=== PATIENT | female | born 1985 | race Caucasian/White ===

== ENCOUNTER 2016-07-07 08:15 | Emergency (ER) | payer OTHER ==
[2016-07-07 08:35] VITALS: RESP 14; TEMP 97.5; O2SAT 96
[2016-07-07] MEDS ORDERED: KETOROLAC 30 MG/1 ML SDV IVP ONE (08:59)
[2016-07-07] MEDS ORDERED: DIAZEPAM 10 MG/2 ML SYR IVP ONE (09:00)
--- NOTE | 2016-07-07 09:02 | UCPHY ---
H & P Time Seen by Provider: 07/07/16 08:46 Patient Type: Established HPI/ROS: This patient care as long history of fibromyalgia. She has occasional flares and she describes having 1 now. She complains primarily of knee and hip pain bilaterally but also has myalgias. She states the intensity is 8/10, achy in nature. She has had partial relief from [id number]-[id number] medications that have included Robaxin, ibuprofen with about 3 hours of relief. She also had left over Vicodin script that she took with partial relief. She had gabapentin from her dog that she took-100 mg without significant relief. She notes no other exacerbating factors except for partial improvement with heat applied to sore areas. She reports having had a negative workup for rheumatologic disorders in the past. ROS: No fevers or chills. Musculoskeletal: She reports no swelling or redness to the affected joints. HEENT: No complaints neuro: No numbness tingling or focal weakness. Integumentary: No skin rash. 7 point ROS is otherwise negative Past Medical/Surgical History: Fibromyalgia Smoking Status: Never smoked Physical Exam: General Appearance: Alert, no distress. Eyes: Pupils equal and round no pallor or injection. ENT, Mouth: Mucous membranes moist. Respiratory: There are no retractions, lungs are clear to auscultation. Cardiovascular: Regular rate and rhythm. Gastrointestinal: Abdomen is soft and nontender, no masses, bowel sounds normal. Neurological: Alert with no focal deficits Skin: Warm and dry, no rashes. Musculoskeletal: Neck is supple nontender. Extremities are symmetrical, full range of motion. Mild tenderness to knees his foot no swelling or redness. No asymmetric findings. No warmth to touch. Psychiatric: Mood and affect normal DIFFERENTIAL DIAGNOSIS: After history and physical exam differential diagnosis was considered for fibromyalgia, psychosomatic disorder, viral syndrome Constitutional: Initial Vital Signs Temperature (C) 36.4 C 07/07/16 08:31 Heart Rate 80 07/07/16 08:31 Respiratory Rate 14 07/07/16 08:31 Blood Pressure 116/74 07/07/16 08:31 O2 Sat (%) 96 07/07/16 08:31 O2 Delivery Mode Room Air Allergies/Adverse Reactions: No Known Allergies Allergy (Verified 07/07/16 08:35) Home Medications: Medication Instructions Recorded Prozac 04/06/13 ZyRTEC 04/06/13 traZODONE 04/06/13 Ibuprofen [Motrin (*)] 600 mg PO Q6 PRN #30 tab 07/07/16 Methocarbamol [Robaxin 750 mg (*)] 750 - 1,500 mg PO QID PRN #30 tab 07/07/16 MDM/Departure - MDM Medications Given: Discontinued Medications Diazepam (Valium Injection) 5 mg IVP EDNOW ONE Stop: 07/07/16 09:01 Last Admin: 07/07/16 09:40 Dose: 5 mg Ketorolac Tromethamine (Toradol) 30 mg IVP EDNOW ONE Stop: 07/07/16 09:00 Last Admin: 07/07/16 09:30 Dose: 30 mg ED Course/Re-evaluation: Patient was concerned about her escalating pain explaining that she often develops vomiting as a complication of pain syndromes which has not started yet but she requests some parental analgesia for her symptoms. IV is placed she is treated with Toradol and Valium with relief. I recommended against use of opiates for chronic pain. She will try further methocarbamol, ibuprofen follow up with her primary care physician. Clinically, there is no evidence to suggest infectious etiology, or acute arthralgias or other concerning findings. - Depart Disposition: Home, Routine, Self-Care Clinical Impression: Musculoskeletal pain Condition: Good Instructions: Musculoskeletal Pain (ED) Additional Instructions: Diagnosis: Musculoskeletal pain Plan: Ibuprofen-600 mg per 6 hours Tylenol in addition if needed Methocarbamol muscle relaxant in addition as needed Follow up with your primary care physician tomorrow. Prescriptions: Ibuprofen [Motrin (*)] 600 mg PO Q6 PRN #30 tab PRN Reason: Pain Methocarbamol [Robaxin 750 mg (*)] 750 - 1,500 mg PO QID PRN #30 tab PRN Reason: Muscle Spasms Referrals: Edson Rodríguez MD [Primary Care Provider] - As per Instructions - PQRS PQRS Measurement: NA
[2016-07-07 10:34] VITALS: BP 105/63; PULSE 71
== END 2016-07-07 10:35 | disposition home or self-care (01) ==
LOC: CED 08:15
DX: M79.1 Myalgia (principal)
CPT/HCPCS: 96374-PO; 96375-PO; 99214-PO; G0463-PO; J1885